=== PATIENT | male | born 1965 | race Two or more races ===

== ENCOUNTER 2019-10-16 19:05 | Inpatient (IN) | payer OTHER, MEDICAID ==
[~2019-10-16] VITALS: Ht 170.2 cm; Wt 65.5 kg
[~2019-10-16 19:05] MED LIST: AMYL1CAP56 PO; DIAZ10TA PO; ESCI10TA PO; HYDR-4354 PO; OMEG1CAP40 PO; OXYC-133 PO; ZOLP5TAB2 PO
[2019-10-16] MEDS ORDERED: SERT100T PO (19:24)
[2019-10-16] MEDS ORDERED: [UNRECOGNIZED DRUG - REMARK] (19:24)
[2019-10-16] MEDS ORDERED: [UNRECOGNIZED DRUG - REMARK] (19:24)
[2019-10-16] MEDS ORDERED: ONDANSETRON ODT 4 MG TAB.RAPDIS SL ONE (19:45)
[2019-10-16] MEDS ORDERED: OXYCODONE/APAP 5-325 MG TABLET PO ONE ×2 (19:45→21:30)
[2019-10-16] MEDS ORDERED: ONDANSETRON ODT 4 MG TAB.RAPDIS ONE (19:52)
[2019-10-16] MEDS ORDERED: OXYCODONE/APAP 5-325 MG TABLET ONE ×3 (19:52→21:32)
[2019-10-16 19:56] LABS: BASOPHILS % (AUTO) 0.2 % (0.0-2.0); EOSINOPHILS % (AUTO) 0.3 % (0.0-7.0); HEMATOCRIT 36.1 % (36.7-47.1); HEMOGLOBIN 12.4 g/dL (12.5-16.3); LYMPHOCYTES # (AUTO) 1.1 K/uL (20.0-40.0); LYMPHOCYTES % (AUTO) 9.9 % (20.5-51.5); MEAN CORPUSCULAR HEMOGLOBIN 32.2 uug (23.8-33.4); MEAN CORPUSCULAR HGB CONC 34 g/dL (32.5-36.3); MEAN CORPUSCULAR VOLUME 94.1 fL (73.0-96.2); MONOCYTES % (AUTO) 9.8 % (0.0-11.0); NEUTROPHILS # (AUTO) 8.5 K/uL (1.8-8.9); NEUTROPHILS % (AUTO) 79.8 % (38.5-71.5); PLATELET COUNT (AUTO) 180 K/uL (152-348); RED BLOOD CELL COUNT(AUTO) 3.84 MIL/uL (4.06-5.63); WHITE BLOOD COUNT (AUTO) 10.7 K/uL (3.6-10.2)
[2019-10-16 20:03] LABS: POTASSIUM 3.3 mmol/L (3.5-5.1)
--- NOTE | 2019-10-16 20:03 | NUR ---
OATIENT OUT OF UNIT FOR CT SCAN VIA GURNY.
[2019-10-16 20:09] LABS: BILIRUBIN,DIRECT 0.1 mg/dL (0.0-0.2); BILIRUBIN,TOTAL 0.4 mg/dL (0.2-1.0); TOTAL PROTEIN, SERUM 6.9 g/dL (6.4-8.2)
--- NOTE | 2019-10-16 20:12 | NUR ---
PATIENT BACK FROM CT SCAN WITH NO DISTRESS NOTED.
--- NOTE | 2019-10-16 21:56 | NUR ---
[facility], WAITING FOR [employer] SUPERVISOR TO CALL BACK.
--- NOTE | 2019-10-16 22:06 | NUR ---
DR WALKER SPEAKING WITH MIRLANDE WALDRON [employer] ORDER SPECIALIST FOR EPPIC PANEL.
[2019-10-16] MEDS ORDERED: Z GUARD REMEDY PASTE 57 GM TUBE TOP PRN (22:15)
[2019-10-16] MEDS ORDERED: MAGNESIUM HYDROXIDE 30 ML LIQUID UDC PO PRN (22:15)
[2019-10-16] MEDS ORDERED: ACETAMINOPHEN 325 MG TABLET PO PRN (22:15)
[2019-10-16] MEDS ORDERED: ONDANSETRON 4 MG/2 ML VIAL IV PRN (22:15)
[2019-10-16] MEDS ORDERED: HYDROCODONE/APAP 5-325MG TABLET PO PRN (22:15)
--- NOTE | 2019-10-16 22:25 | NUR ---
PATIENT TRANSFERED MED SURG VIA GURNY.
[2019-10-16] MEDS ORDERED: LIDOCAINE 5% PATCH TD ONE (22:30)
--- NOTE | 2019-10-16 22:30 | NUR ---
Admitted a 53 years old male with diagnosis of Intractable back pain S/P mechanical fall. Patient AAOX4. In no acute distress. Complained of lower back and abdominal pain upon admission. Denies any SOB. Per patient he is unable to ambulate at this time. Fall precaution and safety measure discussed with patient and states understanding. IV site on left FA intact and patent. Needs assessed and attended to. Routine admission care done. Plan of care initiated and call gallardo within reached.
[2019-10-16 22:55] VITALS: BP 129/82
[2019-10-17] MEDS: OXYCODONE/APAP 5-325 MG TABLET PO PRN ×4 (00:04→18:27)
[2019-10-17 05:26] VITALS: BP 132/74
--- NOTE | 2019-10-17 06:18 | NUR ---
AAOX4.Percocet given for complain of lower back and abdominal pain. No complain of SOB. IV site on left FA intact and patent. Needs attended to and met. Safety measure maintained and call gallardo within reached.
[2019-10-17 06:29] LABS: BASOPHILS % (AUTO) 0.3 % (0.0-2.0); EOSINOPHILS # (AUTO) 0.1 K/uL (0.0-0.7); HEMATOCRIT 35.2 % (36.7-47.1); HEMOGLOBIN 11.8 g/dL (12.5-16.3); LYMPHOCYTES # (AUTO) 1.7 K/uL (20.0-40.0); LYMPHOCYTES % (AUTO) 24.9 % (20.5-51.5); MEAN CORPUSCULAR HEMOGLOBIN 32.6 uug (23.8-33.4); MEAN CORPUSCULAR HGB CONC 34 g/dL (32.5-36.3); MEAN CORPUSCULAR VOLUME 97.3 fL (73.0-96.2); MONOCYTES # (AUTO) 0.6 K/uL (2.0-10.0); MONOCYTES % (AUTO) 8.5 % (0.0-11.0); NEUTROPHILS # (AUTO) 4.5 K/uL (1.8-8.9); NEUTROPHILS % (AUTO) 65.3 % (38.5-71.5); PLATELET COUNT (AUTO) 165 K/uL (152-348); RED BLOOD CELL COUNT(AUTO) 3.62 MIL/uL (4.06-5.63); WHITE BLOOD COUNT (AUTO) 6.9 K/uL (3.6-10.2)
[2019-10-17 06:53] LABS: THYROID STIMULATING HORMONE 2.068 mIU/mL (0.358-3.740)
[2019-10-17] MEDS ORDERED: PANTOPRAZOLE SODIUM 40 MG TABLET.DR PO SCH (07:00)
[2019-10-17 07:12] LABS: CREATININE 0.9 mg/dL (0.6-1.3); PHOSPHOROUS 3.9 mg/dL (2.5-4.9); POTASSIUM 3.5 mmol/L (3.5-5.1)
[2019-10-17] MEDS ORDERED: HYDROCODONE/APAP 5-325MG TABLET PO PRN (07:30)
--- NOTE | 2019-10-17 07:35 | NUR ---
Received patient in bed, awake, alert and verbally responsive. No signs of distress noted. No SOB. No complain of Pain at this time. Will continue to monitor.
[2019-10-17] MEDS: LIPASE/PROTEASE/AMYLASE 4200 UNITS CAPSULE.DR PO SCH ×3 (08:00→17:31)
[2019-10-17] MEDS ORDERED: ESCITALOPRAM OXALATE 10 MG TABLET PO SCH (09:00)
[2019-10-17 11:02] VITALS: BP 110/67
[2019-10-17 11:22] LABS: *BILIRUBIN,URIN NEGATIVE (NEGATIVE); *BLOOD, URINE NEGATIVE (NEGATIVE); *CLARITY,URINE CLEAR (CLEAR); *COLOR,URINE YELLOW (YELLOW); *KETONES,URINE NEGATIVE (NEGATIVE); *UROBILINOGEN,URINE 0.2 E.U./dl (NORMAL); LEUKOCYTE ESTERASE ,URINE NEGATIVE (NEGATIVE); NITRITE, URINE NEGATIVE (NEGATIVE); UGLUCOSE NEGATIVE (NEGATIVE)
[2019-10-17 15:00] VITALS: BP 116/67
--- NOTE | 2019-10-17 18:36 | NUR ---
Patient is awake, alert and verbally responsive. No signs of distress noted. No SOB. Pain Medications given as ordered. Patient with Discharge Order today to [facility], Spoke with Vaughn and endorsed Accordingly. All discharge instructions given to patient and verbalized understanding. Removed IV site and Wrist Band. Patient was Picked up by 2 EMT in stable condition.
[2019-10-18] MEDS ORDERED: SERTRALINE HCL 100 MG TABLET PO SCH (09:00)
== END 2019-10-17 18:37 | DRG 948 ==
LOC: ER 19:05 → MEDSURG3 22:19
PROVIDERS: ADMIT Registered Nurse
DX: G89.11 Acute pain due to trauma (principal); F11.20 Opioid dependence, uncomplicated; M51.26 Other intervertebral disc displacement, lumbar region; K40.90 Unilateral inguinal hernia, without obstruction or gangrene, not specified as recurrent; G89.4 Chronic pain syndrome; K58.0 Irritable bowel syndrome with diarrhea; Z90.49 Acquired absence of other specified parts of digestive tract; Z82.49 Family history of ischemic heart disease and other diseases of the circulatory system; Z79.899 Other long term (current) drug therapy; D64.9 Anemia, unspecified; Z91.81 History of falling
CPT/HCPCS: 36415; 83690; 83735; 84100; 84443; 85025; A4663; G0378; Q0162